=== PATIENT | female | born 1940 | race American Indian/Alaskan Native ===

== ENCOUNTER 2016-11-29 11:01 | Emergency (ER) | payer MEDICARE ==
[2016-11-29 11:58] LABS: Basophils % (Auto) 0.3 % (0.0-1.8); Hematocrit 46.1 % (30.3-42.9); Hemoglobin 15.4 gm/dl (10.1-14.3); Mean Corpuscular HGB Conc 33 % (30-34); Mean Corpuscular Hemoglobin 29 pg (28-32); Mean Corpuscular Volume 87 fl (79-97); Platelet Count 252 K/mm3 (140-440); Red Blood Count 5.28 M/mm3 (3.65-5.03); Red Cell Distribution Width 13.6 % (13.2-15.2); White Blood Count 9.1 K/mm3 (4.5-11.0)
[2016-11-29 12:09] LABS: INR 0.96 (0.87-1.13)
[2016-11-29 12:10] LABS: Partial Thromboplastin Time 24.9 Sec. (24.2-36.6)
--- NOTE | 2016-11-29 12:10 | Cat Scan Report ---
CT HEAD WITHOUT CONTRAST: HISTORY: Syncope, dizziness, falling. TECHNIQUE: Sequential CT images without contrast. FINDINGS: Images obtained show bilateral prominence of the sulci and ventricles. There are no abnormal intra- or extra-axial blood or fluid collections. There are no focal masses or evidence of mass effect. The franks white matter differentiation appears within normal limits. Regions of periventricular decreased attenuation are consistent with microangiopathic ischemic disease. The posterior fossa structures including the fourth ventricle, cerebellum, and brainstem appear normal. IMPRESSION: Evidence of atrophy and microangiopathic ischemic disease. No acute intracranial process noted.
[2016-11-29 12:18] LABS: Anion Gap 22 mmol/L; Blood Urea Nitrogen 9 mg/dL (7-17); Calcium 9.7 mg/dL (8.4-10.2); Carbon Dioxide 27 mmol/L (22-30); Glucose 133 mg/dL (65-100); Potassium 3.5 mmol/L (3.6-5.0); Sodium 139 mmol/L (137-145)
[2016-11-29] MEDS ORDERED: ASPIRIN PO ONE (19:39)
--- NOTE | 2016-11-29 19:41 | Emergency Department Report ---
Chief Complaint: Neuro Symptoms/Deficit Stated Complaint: DIZZINESS,UNBALANCED,POSSIBLE CVA - HPI History of Present Illness: Patient is sent to the ER by her primary care doctor for evaluation of dizziness /sensation of unsteady gait, which has since resolved. Primary care doctor concerned about TIA. Currently has a GCS of 15, NIH score of 0. Asymptomatic. Laboratory studies reviewed. CT scan of the head negative. Vital Signs 11/29/16 11:29 Temperature 98 F Pulse Rate 78 Blood Pressure 141/86 Lab Results 11/29/16 11/29/16 11/29/16 Range/Units 11:40 11:40 11:40 WBC 9.1 (4.5-11.0) K/mm3 RBC 5.28 H (3.65-5.03) M/mm3 Hgb 15.4 H (10.1-14.3) gm/dl Hct 46.1 H (30.3-42.9) % MCV 87 (79-97) fl MCH 29 (28-32) pg MCHC 33 (30-34) % RDW 13.6 (13.2-15.2) % Plt Count 252 (140-440) K/mm3 Lymph % (Auto) 9.1 L (13.4-35.0) % [place] % (Auto) 3.4 (0.0-7.3) % Eos % (Auto) 0.0 (0.0-4.3) % Baso % (Auto) 0.3 (0.0-1.8) % Lymph # 0.8 L (1.2-5.4) K/mm3 [place] # 0.3 (0.0-0.8) K/mm3 Eos # 0.0 (0.0-0.4) K/mm3 Baso # 0.0 (0.0-0.1) K/mm3 Seg Neutrophils % 87.2 H (40.0-70.0) % Seg Neutrophils # 8.0 H (1.8-7.7) K/mm3 PT 12.7 (12.2-14.9) Sec. INR 0.96 (0.87-1.13) APTT 24.9 (24.2-36.6) Sec. Thrombin Time (15.1-19.6) Sec. Sodium 139 (137-145) mmol/L Potassium 3.5 L (3.6-5.0) mmol/L Chloride 94.0 L (98-107) mmol/L Carbon Dioxide 27 (22-30) mmol/L Anion Gap 22 mmol/L BUN 9 (7-17) mg/dL Creatinine 0.6 L (0.7-1.2) mg/dL Estimated GFR > 60 ml/min BUN/Creatinine Ratio 15.00 % Glucose 133 H (65-100) mg/dL Calcium 9.7 (8.4-10.2) mg/dL Troponin T < 0.010 (0.00-0.029) ng/mL 11/29/16 Range/Units 11:40 WBC (4.5-11.0) K/mm3 RBC (3.65-5.03) M/mm3 Hgb (10.1-14.3) gm/dl Hct (30.3-42.9) % MCV (79-97) fl MCH (28-32) pg MCHC (30-34) % RDW (13.2-15.2) % Plt Count (140-440) K/mm3 Lymph % (Auto) (13.4-35.0) % [place] % (Auto) (0.0-7.3) % Eos % (Auto) (0.0-4.3) % Baso % (Auto) (0.0-1.8) % Lymph # (1.2-5.4) K/mm3 [place] # (0.0-0.8) K/mm3 Eos # (0.0-0.4) K/mm3 Baso # (0.0-0.1) K/mm3 Seg Neutrophils % (40.0-70.0) % Seg Neutrophils # (1.8-7.7) K/mm3 PT (12.2-14.9) Sec. INR (0.87-1.13) APTT (24.2-36.6) Sec. Thrombin Time 17.4 (15.1-19.6) Sec. Sodium (137-145) mmol/L Potassium (3.6-5.0) mmol/L Chloride (98-107) mmol/L Carbon Dioxide (22-30) mmol/L Anion Gap mmol/L BUN (7-17) mg/dL Creatinine (0.7-1.2) mg/dL Estimated GFR ml/min BUN/Creatinine Ratio % Glucose (65-100) mg/dL Calcium (8.4-10.2) mg/dL Troponin T (0.00-0.029) ng/mL - Exam Vital Signs: Vital Signs 11/29/16 11:29 Temperature 98 F Pulse Rate 78 Blood Pressure 141/86 MSE screening note: Focused history and physical exam performed. Due to findings the following was ordered: ED Medical Decision Making - Lab Data Result diagrams: 11/29/16 11:40 11/29/16 11:40 ED Disposition for MSE Condition: Stable Referrals: PRIMARY CARE, [Primary Care Provider] - 3-5 Days
[2016-11-29 20:21] VITALS: BP 169/91
--- NOTE | 2016-11-29 20:51 | Emergency Department Report ---
HPI - General Chief Complaint: Neuro Symptoms/Deficit Time Seen by Provider: 11/29/16 20:25 - HPI HPI: Room 4 The patient is a 76-year-old female presenting with a chief complaint of dizziness. The patient states 2 weeks ago she had URI symptoms which included sinus drainage and cough. The patient states she went to the hospital was diagnosed with UTI and started on cefuroxime. The patient states she's had decreased energy and decreased appetite for the past 2 weeks. The patient states this morning she awakened at 06:00 and felt dizzy/"woozy." The patient states she was off balance and had a whole bottle wall as she ambulated. The patient called family members were in turn called 911. EMS arrived on scene and evaluated the patient and recommended she go see her primary physician. The patient went to see her primary physician and after evaluation and an abundance of caution the patient was sent to the ED for evaluation. Patient denied having a headache,. He weakness, dysarthria, dysphagia or paresthesia. The patient states her dizziness subsided shortly after arriving in the ED. The patient's only complaint now is hunger. Location: Head Duration: See above Quality: "Woozy" Severity: Moderate Modifying factors: [see above] Context: [see above] Mode of transportation: [not driving] ED Past Medical Hx - Past Medical History Hx Hypertension: Yes Additional medical history: UTI - Surgical History Additional Surgical History: hysterectomy - Family History Family history: no significant - Social History Smoking Status: Never Smoker Substance Use Type: None - Medications Home Medications: Home Medications Medication Instructions Recorded Confirmed Last Taken Type amLODIPine [Norvasc] 10 mg PO QDAY #30 tablet 07/09/13 11/29/16 11/29/16 Rx Meclizine [Antivert] 25 mg PO TID PRN #20 tablet 11/29/16 Unknown Rx ED Review of Systems ROS: Stated complaint: DIZZINESS,UNBALANCED,POSSIBLE CVA Other details as noted in HPI Comment: All other systems reviewed and negative Constitutional: denies: chills, fever Eyes: denies: eye pain, eye discharge, vision change ENT: denies: ear pain, throat pain Respiratory: denies: cough, shortness of breath, wheezing Cardiovascular: denies: chest pain, palpitations Endocrine: no symptoms reported Gastrointestinal: denies: abdominal pain, nausea, diarrhea Genitourinary: denies: urgency, dysuria, discharge Musculoskeletal: denies: back pain, joint swelling, arthralgia Skin: denies: rash, lesions Neurological: abnormal gait, vertigo. denies: headache, weakness, numbness, paresthesias, confusion Psychiatric: denies: anxiety, depression Physical Exam - Physical Exam Vital Signs: Vital Signs 11/29/16 11/29/16 11:29 19:17 Temperature 98 F 98.3 F Pulse Rate 78 70 Respiratory 16 Rate Blood Pressure 141/86 Blood Pressure 169/91 [Left] O2 Sat by Pulse 98 Oximetry Physical Exam: GENERAL: The patient is well-developed well-nourished female lying on stretcher not appearing to be in acute distress. [] HEENT: Normocephalic. Atraumatic. No meningitic signs are noted. There Extraocular motions are intact. Patient has moist mucous membranes. No nystagmus NECK: Supple. Trachea midline CHEST/LUNGS: Clear to auscultation. There is no respiratory distress noted. HEART/CARDIOVASCULAR: Regular. There is no tachycardia. There is no gallop rub or murmur. ABDOMEN: Abdomen is soft, nontender. Patient has normal bowel sounds. There is no abdominal distention. SKIN: There is no rash. There is no edema. There is no diaphoresis. NEURO: The patient is awake, alert, and oriented. The patient is cooperative. The patient has no focal neurologic deficits. The patient has normal speech. Cranial nerves II through XII grossly intact, no drift. No dysmetria noted with [id number] bilaterally. Industrial [employer] equal bilaterally MUSCULOSKELETAL:There is no evidence of acute injury. ED Course Vital Signs 11/29/16 11/29/16 11:29 19:17 Temperature 98 F 98.3 F Pulse Rate 78 70 Respiratory 16 Rate Blood Pressure 141/86 Blood Pressure 169/91 [Left] O2 Sat by Pulse 98 Oximetry ED Medical Decision Making - Lab Data Result diagrams: 11/29/16 11:40 11/29/16 11:40 Laboratory Tests 11/29/16 11/29/16 11/29/16 11:40 11:40 11:40 WBC 9.1 RBC 5.28 H Hgb 15.4 H Hct 46.1 H MCV 87 MCH 29 MCHC 33 RDW 13.6 Plt Count 252 Lymph % (Auto) 9.1 L [place] % (Auto) 3.4 Eos % (Auto) 0.0 Baso % (Auto) 0.3 Lymph # 0.8 L [place] # 0.3 Eos # 0.0 Baso # 0.0 Seg Neutrophils % 87.2 H Seg Neutrophils # 8.0 H PT 12.7 INR 0.96 APTT 24.9 Thrombin Time Sodium 139 Potassium 3.5 L Chloride 94.0 L Carbon Dioxide 27 Anion Gap 22 BUN 9 Creatinine 0.6 L Estimated GFR > 60 BUN/Creatinine Ratio 15.00 Glucose 133 H Calcium 9.7 Troponin T < 0.010 11/29/16 11:40 WBC RBC Hgb Hct MCV MCH MCHC RDW Plt Count Lymph % (Auto) [place] % (Auto) Eos % (Auto) Baso % (Auto) Lymph # [place] # Eos # Baso # Seg Neutrophils % Seg Neutrophils # PT INR APTT Thrombin Time 17.4 Sodium Potassium Chloride Carbon Dioxide Anion Gap BUN Creatinine Estimated GFR BUN/Creatinine Ratio Glucose Calcium Troponin T - EKG Data -: EKG Interpreted by Ut EKG shows normal: sinus rhythm Rate: normal - EKG Data When compared to previous EKG there are: no significant change Interpretation: unchanged when compared t - Radiology Data Radiology results: report reviewed (Ct Head), image reviewed (CT head, chest x- ray) CT Head (by radiologist)-no acute intracranial process - Differential Diagnosis vertigo, TIA, dehydration Critical care attestation.: If time is entered above; I have spent that time in minutes in the direct care of this critically ill patient, excluding procedure time. ED Disposition Clinical Impression: Vertigo Disposition: DISCHARGED TO HOME OR SELFCARE Is pt being admited?: No Does the pt Need Aspirin: No Condition: Stable Instructions: Vertigo (ED) Additional Instructions: Return to the emergency department immediately should you develop worsening symptoms, fever, inability to tolerate food or liquid or any other concerns. Prescriptions: Meclizine [Antivert] 25 mg PO TID PRN #20 tablet PRN Reason: Vertigo Referrals: PRIMARY CARE, [Primary Care Provider] - 3-5 Days YO FROST MD [Staff Physician] - 3-5 Days (Dr. Frost is a neurologist. Please follow up with him for further evaluation) Time of Disposition: 21:39
[2016-11-29] MEDS ORDERED: NACL 0.9% 1000 ML 1,000 ML IV ONE (21:18)
[2016-11-29 22:24] LABS: Bilirubin,Urine NEG (Negative); Blood,Urine NEG (Negative); Ketones,Urine TR mg/dL (Negative); Leukocyte Esterase,Urine LG (Negative); Mucus,Urine 1+ /HPF; Nitrite,Urine NEG (Negative); Protein,Urine <15 mg/dL mg/dL (Negative); Urobilinogen,Urine < 2.0 mg/dL (<2.0)
--- NOTE | 2016-11-30 10:18 | XRay Report ---
AP CHEST: HISTORY: TIA, mental status changes AP view of the chest demonstrates a normal mediastinal and cardiac contour with clear lungs and normal bony and soft tissue structures. IMPRESSION: Unremarkable AP chest.
== END 2016-11-29 22:37 | disposition home or self-care (01) ==
LOC: ED 11:01
DX: R42 Dizziness and giddiness (principal); I10 Essential (primary) hypertension; Z90.710 Acquired absence of both cervix and uterus
CPT/HCPCS: 36415; 70450; 71010; 80048; 81001; 84484; 85025; 85610; 85670; 85730; 93005; 93010

== ENCOUNTER 2017-03-16 08:55 | Outpatient (CLI) | payer MEDICARE ==
--- NOTE | 2017-03-18 09:32 | Mammography Report ---
Bilateral mammogram: Compared to 06/08/15. CAD study utilized. Findings: Predominance adipose tissue bilaterally. 3 mm circumscribed focal asymmetry subareolar area right breast. No microcalcification. Benign axillary nodes. Impression: Focal asymmetry right breast. Recommend spot mag and sonographic examination. BI-RADS CATEGORY: 0 = Needs additional imaging evaluation ACR BI-RADS MAMMOGRAPHIC CODES: 0 = Needs additional imaging evaluation; 1 = Negative; 2 = Benign; 3 = Probably benign; 4 = Suspicious; 5 = Malignant; 6 = Known biopsy-proven malignancy COMMENT: 1. Dense breast tissue, i.e., adenosis, fibrocystic changes, etc., may obscure an underlying neoplasm. 2. Approximately 10% of cancers are not detected with mammography. 3. A negative mammography report should not delay biopsy if a clinically suspicious mass is present. COMMENT: Patient follow-up letters are generated in [employer].
== END 2017-03-16 08:56 | disposition home or self-care (01) ==
LOC: MAMMO 08:55
PROVIDERS: ATTEND Family Medicine
DX: Z12.31 Encounter for screening mammogram for malignant neoplasm of breast (principal); I10 Essential (primary) hypertension
CPT/HCPCS: 77067; G0202

== ENCOUNTER 2017-04-01 08:23 | Outpatient (CLI) | payer MEDICARE ==
--- NOTE | 2017-04-01 13:40 | Mammography Report ---
Diagnostic right mammogram and targeted right breast ultrasound. History: Recall for right asymmetry. Findings: The spot compression image in the 90 degree view confirmed the presence of a small nodular asymmetry in the upper-inner quadrant of the right breast. This measures 7 mm in diameter on the mammographic images. Targeted ultrasound reveals a 6 x 4 ovoid shaped complex circumscribed lesion with minimal internal echoes. There is no acoustic shadowing. This correlates in size and location to the mammographic finding. Impression: Right complex cyst at the 2:00 position of the right breast. BI-RADS code: 2. Recommendation: Annual screening.
== END 2017-04-01 08:24 | disposition home or self-care (01) ==
LOC: MAMMO 08:23
PROVIDERS: ATTEND Family Medicine
DX: N60.01 Solitary cyst of right breast (principal); N64.89 Other specified disorders of breast; I10 Essential (primary) hypertension
CPT/HCPCS: 76642; G0206

== ENCOUNTER 2018-04-16 09:17 | Outpatient (CLI) | payer MEDICARE ==
--- NOTE | 2018-04-16 14:03 | Mammography Report ---
BILATERAL MAMMOGRAM: FINDINGS: The breasts are almost entirely fat (<25% glandular). No mass, distortion, suspicious calcification, or skin change is seen. No significant change when compared to prior exams in 2017. CAD was utilized. IMPRESSION: Negative mammogram. There is no mammographic evidence of malignancy. RECOMMENDATION: Follow-up per ACS guidelines. BI-RADS CATEGORY: 1 = Negative ACR BI-RADS MAMMOGRAPHIC CODES: 0 = Needs additional imaging evaluation; 1 = Negative; 2 = Benign; 3 = Probably benign; 4 = Suspicious; 5 = Malignant; 6 = Known biopsy-proven malignancy COMMENT: 1. Dense breast tissue, i.e., adenosis, fibrocystic changes, etc., may obscure an underlying neoplasm. 2. Approximately 10% of cancers are not detected with mammography. 3. A negative mammography report should not delay biopsy if a clinically suspicious mass is present. COMMENT: Patient follow-up letters are generated in [employer].
== END 2018-04-16 09:18 | disposition home or self-care (01) ==
LOC: MAMMO 09:17
PROVIDERS: ATTEND Family Medicine
DX: Z12.31 Encounter for screening mammogram for malignant neoplasm of breast (principal); I10 Essential (primary) hypertension; Z90.710 Acquired absence of both cervix and uterus
CPT/HCPCS: 77067